=== PATIENT | male | born 1970 | race Caucasian/White ===

== ENCOUNTER 2017-07-21 11:06 | Emergency (ER) | payer OTHER ==
[~2017-07-21] VITALS: Ht 167.6 cm; Wt 60.0 kg
[2017-07-21 11:07] VITALS: BP 135/93; PULSE 72; RESP 15; TEMP 98.7; O2SAT 98
[2017-07-21] MEDS ORDERED: CEPH-460 PO (11:52)
--- NOTE | 2017-07-21 11:53 | PD ---
HPI Chief Complaint: Injury Time Seen by Provider: 11:34 Travel History International Travel<30 days: No Contact w/Intl Traveler<30days: No Traveled to known affect area: No History of Present Illness HPI 46-year-old male who sustained a crush injury to his right thumb on 07/17/17 resulting in a tuft fracture was seen and treated at a local urgent care clinic that same day. His thumbnail was removed by the provider and he was sent home with pain medication, antibiotic ointment, Bactrim and instructed to follow up with hand surgeon. Patient returned for his recheck visit today at the local clinic and reported that he was unable to schedule an appointment with hand surgeon. Apparently the provider instructed him to come to the emergency department for evaluation of the thumb because the patient stated some mild paresthesias at the tip as well as a 2 mm area of skin discoloration. Patient does not indorse worsening pain. He denies fever or chills. He reports only mild altered sensation at the tip if the digit. PFSH Past Medical History Medical History: Denies Significant Hx Past Surgical History Genitourinary Surgery: Yes (vasectomy) Social History Alcohol Use: Yes (daily) Tobacco Use: No Substance Use: No Allergies-Medications Reported Meds & Prescriptions Reported Meds & Active Scripts Active Keflex (Cephalexin) 500 Mg Cap 500 Mg PO Q6H 7 Days Review of Systems Except as stated in HPI: all other systems reviewed are Neg General / Constitutional: No: Fever Physical Exam Narrative GENERAL: SKIN: Warm and dry. HEAD: Normocephalic. EYES: No scleral icterus. No injection or drainage. NECK: Supple, trachea midline. No JVD or lymphadenopathy. CARDIOVASCULAR: Regular rate and rhythm without murmurs, gallops, or rubs. RESPIRATORY: Breath sounds equal bilaterally. No accessory muscle use. GASTROINTESTINAL: Abdomen soft, non-tender, nondistended. MUSCULOSKELETAL: No cyanosis, or edema. Right thumb: he has full range of motion and normal sensation with the exception of the very distal tip. There is a very small 2 mm area of whitish colored skin near laceration site. The fingernail has been removed from previous provider. There is no evidence of infection, tenosynovitis, or neurovascular compromise. The area of discoloration appears to be just devitalized tissue at this tip of the laceration site BACK: Nontender without obvious deformity. No CVA tenderness. Data Data Last Documented VS Vital Signs Date Time Temp Pulse Resp B/P (MAP) Pulse Ox O2 Delivery O2 Flow Rate FiO2 07/21/17 12:11 07/21/17 11:07 98.7 72 15 98 Orders Orders Ed Discharge Order (07/21/17 12:01) MDM Medical Decision Making Medical Screen Exam Complete: Yes Emergency Medical Condition: Yes Differential Diagnosis Wound infection, tuft fracture, cellulitis, tenosynovitis Narrative Course 46-year-old male who sustained a crush injury to his right thumb on 07/17/17 resulting in a tuft fracture was seen and treated at a local urgent care clinic that same day. His thumbnail was removed by the provider and he was sent home with pain medication, antibiotic ointment, Bactrim and instructed to follow up with hand surgeon. Patient returned for his recheck visit today at the local clinic and reported that he was unable to schedule an appointment with hand surgeon. Apparently the provider instructed him to come to the emergency department for evaluation of the thumb because the patient stated some mild paresthesias at the tip as well as a 2 mm area of skin discoloration. On exam of the right thumb he has full range of motion and normal sensation with the exception of the very distal tip. There is a very small 2 mm area of whitish colored skin near laceration site. There is no evidence of infection, tenosynovitis, or neurovascular compromise. The area of discoloration appears to be just devitalized tissue at this tip of the laceration site. The patient does not endorse increased in pain since the injury. He feels the wound is getting better. The plan for the patient will be to add Keflex and have him follow-up with the on-call hand surgeon. Diagnosis Primary Impression: Open fracture of tuft of distal phalanx of right thumb Referrals: Emma Ashton MD Additional Instructions: Take the antibiotics as prescribed. Take your pain medication as prescribed. Continue wearing the thumb splint as directed. Call and make a follow-up appointment with the hand surgeon Dr. Ashton. Return to the emergency department if he developed new or worsening symptoms. Scripts Cephalexin (Keflex) 500 Mg Cap 500 MG PO Q6H for Infection for 7 Days, #28 CAP 0 Refills Prov: Crystal Mariano 07/21/17 Disposition: 01 DISCHARGE HOME Condition: Stable Crystal Mariano Jul 21, 2017 11:53
== END 2017-07-21 12:11 | disposition home or self-care (01) ==
LOC: NEPD 11:06
DX: S62.521B Displaced fracture of distal phalanx of right thumb, initial encounter for open fracture (principal); R20.2 Paresthesia of skin; X58.XXXA Exposure to other specified factors, initial encounter
CPT/HCPCS: 99283

== ENCOUNTER 2018-01-29 10:47 | Emergency (ER) | payer SELFPAY ==
[~2018-01-29] VITALS: Ht 167.6 cm; Wt 64.0 kg
[~2018-01-29 10:47] MED LIST: CEPH-460 PO
[2018-01-29 10:51] VITALS: BP 119/73; PULSE 60; RESP 16; TEMP 97.9; O2SAT 100
[2018-01-29] MEDS ORDERED: PROPARACAINE HCL 0.5% OPHT SOLN 15 ML BTL EACH EYE ONE (13:15)
[2018-01-29] MEDS ORDERED: ERYTOIN10 RIGHT EYE (13:25)
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
== END 2018-01-29 13:40 | disposition home or self-care (01) ==
LOC: NEPK 10:47
DX: T15.01XA Foreign body in cornea, right eye, initial encounter (principal)
CPT/HCPCS: 65220